=== PATIENT | female | born 1965 | race American Indian/Alaskan Native ===

== ENCOUNTER 2016-08-12 11:42 | Emergency (ER) | payer MEDICARE ==
[2016-08-12] MEDS ORDERED: HALDOL ONE (12:14)
[2016-08-12] MEDS ORDERED: ATIVAN ONE (12:15)
--- NOTE | 2016-08-12 12:30 | Emergency Department Report ---
ED Psych HPI - General Chief Complaint: Psych Stated Complaint: COMBATIVE/SCHIZO/1013 Time Seen by Provider: 08/12/16 12:11 Source: police, EMS Mode of arrival: Ambulatory - History of Present Illness MD Complaint: altered mental status -: Sudden Associated Psychiatric Symptoms: depression, racing thoughts, auditory hallucinations, delusions History of same: Yes Quality: constant Improves With: none Worsens With: none Context: not taking psychiatric Associated Symptoms: confusion, insomnia. denies: headache, shortness of breath , nausea, vomiting, syncope Treatments Prior to Arrival: none - Related Data Home Medications Medication Instructions Recorded Confirmed Last Taken Benztropine [Cogentin] 3 mg PO QDAY 10/26/14 11/06/14 11/06/14 Haloperidol [Haldol] 5 mg PO BID 10/26/14 11/06/14 11/06/14 Allergies Allergy/AdvReac Type Severity Reaction Status Date / Time No Known Allergies Allergy Verified 11/06/14 19:11 ED Review of Systems ROS: Stated complaint: COMBATIVE/SCHIZO/1013 Other details as noted in HPI Comment: All other systems reviewed and negative ED Past Medical Hx - Past Medical History Previous Medical History?: Yes Hx Psychiatric Treatment: Yes (schizo) Additional medical history: schizophrenia - Surgical History Additional Surgical History: SOPHIE - Social History Smoking Status: Unknown if ever smoked - Medications Home Medications: Home Medications Medication Instructions Recorded Confirmed Last Taken Type Benztropine [Cogentin] 3 mg PO QDAY 10/26/14 11/06/14 11/06/14 History Haloperidol [Haldol] 5 mg PO BID 10/26/14 11/06/14 11/06/14 History ED Physical Exam - General Limitations: Altered Mental Status General appearance: alert - Head Head exam: Present: atraumatic, normocephalic - Eye Eye exam: Present: normal appearance, PERRL - ENT ENT exam: Present: normal exam, normal orophraynx, mucous membranes moist - Neck Neck exam: Present: normal inspection - Respiratory Respiratory exam: Present: normal lung sounds bilaterally. Absent: respiratory distress - Cardiovascular Cardiovascular Exam: Present: regular rate, normal rhythm. Absent: systolic murmur, diastolic murmur, rubs, gallop - GI/Abdominal GI/Abdominal exam: Present: soft, normal bowel sounds - Extremities Exam Extremities exam: Present: normal inspection - Back Exam Back exam: Present: normal inspection - Neurological Exam Neurological exam: Present: alert, oriented X3 - Psychiatric Psychiatric exam: Present: depressed, agitated, anxious, manic - Skin Skin exam: Present: warm, dry, intact, normal color. Absent: rash ED Medical Decision Making - Medical Decision Making patient will need to be 1013 for further treatment at psych facility, still waiting on labs to rule out ant organic conditions, she is still hearing voices , will continue to observe, haldol/ativan given here Critical care attestation.: If time is entered above; I have spent that time in minutes in the direct care of this critically ill patient, excluding procedure time. ED Disposition Clinical Impression: Psychosis Disposition: DC/TX-65 PSY HOSP/PSY UNIT Is pt being admited?: No Does the pt Need Aspirin: No Condition: Good Referrals: YUSUF MARCOS MD [Primary Care Provider] - 3-5 Days Time of Disposition: 12:51
[2016-08-12 13:25] LABS: Basophils % (Auto) 0.4 % (0.0-1.8); Hematocrit 36.7 % (30.3-42.9); Hemoglobin 12.3 gm/dl (10.1-14.3); Mean Corpuscular HGB Conc 34 % (30-34); Mean Corpuscular Hemoglobin 32 pg (28-32); Mean Corpuscular Volume 95 fl (79-97); Platelet Count 151 K/mm3 (140-440); Red Blood Count 3.87 M/mm3 (3.65-5.03); Red Cell Distribution Width 13.9 % (13.2-15.2); White Blood Count 3.7 K/mm3 (4.5-11.0)
[2016-08-12 13:40] LABS: Anion Gap 15 mmol/L; Blood Urea Nitrogen 8 mg/dL (7-17); Calcium 8.8 mg/dL (8.4-10.2); Carbon Dioxide 26 mmol/L (22-30); Chloride 102.7 mmol/L (98-107); Glucose 88 mg/dL (65-100); Potassium 4.2 mmol/L (3.6-5.0); Sodium 139 mmol/L (137-145)
[2016-08-12 23:03] LABS: Urine Drugs of Abuse Note Disclamer
[2016-08-12 23:21] LABS: Bilirubin,Urine NEG (Negative); Blood,Urine NEG (Negative); Ketones,Urine NEG (Negative); Leukocyte Esterase,Urine NEG (Negative); Nitrite,Urine NEG (Negative); Protein,Urine <15 mg/dL mg/dL (Negative); Urobilinogen,Urine < 2.0 mg/dL (<2.0); WBC,Urine < 1.0 /HPF (0.0-6.0)
--- NOTE | 2016-08-13 18:09 | Consultation ---
History of Present Illness - Reason for Consult Consult date: 08/13/16 Reason for consult: Mental Health Evaluation Requesting physician: JESSE CORTES - Chief Complaint Chief complaint: "Food inside me" - History of Present Psychiatric Illness 51 y.o. black female presenting to [facility] for for bizarre behavior. Today patient is calm, but delusional during the assessment. She stated that I was a ghost and someone is cooking hamburger inside of her. She could not tell me who this someone is, also she could not elaborate about me being a ghost. Patient pauses when answering questions possibly responding to some type of stimuli. She was pacing during our conversation and had to be redirected. No gestures of SI/HI' s. Patient is a poor historian. Medications and Allergies Allergies Allergy/AdvReac Type Severity Reaction Status Date / Time No Known Allergies Allergy Verified 11/06/14 19:11 Home Medications Medication Instructions Recorded Confirmed Last Taken Type Benztropine [Cogentin] 3 mg PO QDAY 10/26/14 11/06/14 11/06/14 History Haloperidol [Haldol] 5 mg PO BID 10/26/14 11/06/14 11/06/14 History Past psychiatric history - Past Medical History Past Medical History: other (unable to obtain) Past Surgical History: Other (unable to obtain) - past Psychiatric treatment and history psychiatric treatment history: unable to obtain psy hx and fam psy hx - Social History Social history: other (unable to obtain) Mental Status Exam - Vital signs Last Vital Signs Temp 98.4 F 08/13/16 10:00 Pulse 72 08/13/16 10:00 Resp 18 08/13/16 13:37 BP 116/70 08/13/16 10:00 Pulse Ox 97 08/13/16 13:37 - Exam Narrative exam: ROS: (+) psychosis MSE: Appearance: calm, cooperative, disheveled Behavior: good eye contact Speech: regular rate and tone Mood: "pretty good" Affect: labile Thought Process: tangential Thought Content: denies SI/HI's and AVH's, delusional Motor Activity: ambulatory Cognition: A/Ox 3 Insight: poor Judgment: poor Results Result Diagrams: 08/12/16 13:10 08/12/16 13:10 Abnormal lab results 08/12/16 Range/Units Unknown Urine pH 8.0 H (5.0-7.0) All other labs normal. Assessment and Plan Assessment and plan: Impression: Unspecified Psychotic DO, Historical Dx from her chart: Schizophrenia. Today patient is calm, but delusional during the assessment. No gestures of SI/HI's. DDx: Delusional DO, Schizoaffective DO Recommendation/Plan: Continue 1013 with placement to inpatient psy services. Pending transfer to [place].
[2016-08-13 21:01] VITALS: BP 147/88
== END 2016-08-13 20:40 ==
LOC: ED 11:42
DX: F29 Unspecified psychosis not due to a substance or known physiological condition (principal); F20.9 Schizophrenia, unspecified
CPT/HCPCS: 36415; 80048; 80307; 81001; 84703; 85025; 99285; G0480; J1630; J2060; 80320

== ENCOUNTER 2018-09-14 13:21 | Emergency (ER) | payer MEDICARE ==
[2018-09-14] MEDS ORDERED: BENADRYL IM ONE (14:02)
[2018-09-14] MEDS ORDERED: GEODON IM ONE (14:02)
[2018-09-14] MEDS ORDERED: WATER FOR INJ Sterile (PF) 10 ML ONE (14:19)
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
[2018-09-14 15:15] LABS: Hematocrit 36.9 % (30.3-42.9); Hemoglobin 12.3 gm/dl (10.1-14.3); Mean Corpuscular HGB Conc 33 % (30-34); Mean Corpuscular Volume 93 fl (79-97); Platelet Count 140 K/mm3 (140-440); Red Blood Count 3.96 M/mm3 (3.65-5.03); Red Cell Distribution Width 13.7 % (13.2-15.2)
[2018-09-14 15:30] LABS: Bacteria,Urine 1+ /HPF (Negative); Bilirubin,Urine NEG (Negative); Blood,Urine NEG (Negative); Color,Urine Yellow (Yellow); Protein,Urine <15 mg/dL mg/dL (Negative)
[2018-09-14 15:43] LABS: Amphetamine Screen,Urine PRESUMPTIVE NEGATIVE; Benzodiazepines Screen,Urine PRESUMPTIVE NEGATIVE; Cannabinoid Screen,Urine PRESUMPTIVE NEGATIVE; Cocaine Screen,Urine PRESUMPTIVE NEGATIVE; Methadone Screen,Urine PRESUMPTIVE NEGATIVE; Opiate Screen,Urine PRESUMPTIVE NEGATIVE
[2018-09-14 15:49] LABS: BUN/Creatinine Ratio 17; Blood Urea Nitrogen 19 mg/dL (7-17); Calcium 9.3 mg/dL (8.4-10.2); Hemolysis Index 29
[2018-09-14 15:58] LABS: RBC Morphology Normal; Total Cells Counted 100
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
[2018-09-15 07:14] VITALS: BP 136/69
--- NOTE | 2018-09-15 14:42 | Consultation ---
History of Present Illness - Reason for Consult Consult date: 09/15/18 Reason for consult: Mental Health Evaluation Requesting physician: MATTHEW SINGH - Chief Complaint Chief complaint: "Why do I need to be here" - History of Present Psychiatric Illness 53 y.o. AA female who presented to the ER for violent and aggressive behavior. Today the patient was disorganized during the assessment. Most of her answers to questions were not logical. She had to be redirected several times to keep her on topic. She appeared to be preoccupied. She kept her eyes closed throughout the interview. Overall, the patient is a poor historian. No gestires of SI/HI's. Medications and Allergies Allergies Allergy/AdvReac Type Severity Reaction Status Date / Time No Known Allergies Allergy Verified 10/05/17 16:25 Home Medications Medication Instructions Recorded Confirmed Last Taken Type Benztropine [Cogentin] 3 mg PO QDAY 10/26/14 10/06/17 11/06/14 History Haloperidol [Haldol] 5 mg PO BID 10/26/14 10/06/17 11/06/14 History Past psychiatric history - Past Medical History Past Medical History: other ([place]ake to obtain ) Past Surgical History: Other (Unable to obtain ) - past Psychiatric treatment and history psychiatric treatment history: Unable to obtain a psy hx and fa, psy hx. - Social History Social history: other (Unable to obtain ) Mental Status Exam - Vital signs Last Vital Signs Temp 98.0 F 09/15/18 01:00 Pulse 77 09/15/18 01:00 Resp 18 09/15/18 01:00 BP 136/69 09/15/18 01:00 Pulse Ox 99 09/15/18 01:00 - Exam Narrative exam: MSE: Appearance: calm Behavior: eyes were closed Speech: regular rate and tone Mood: preoccupied Affect: congruent to mood Thought Process: disorganized Thought Content: no gestures of SI/HI's Motor Activity: ambulatory Cognition: A/O x 3 Insight: poor Judgment: poor Results Result Diagrams: 09/14/18 14:44 09/14/18 14:44 Abnormal lab results 09/14/18 09/14/18 09/14/18 Range/Units 14:44 14:44 14:44 WBC 3.2 L (4.5-11.0) K/mm3 Seg Neuts % (Manual) 35.0 L (40.0-70.0) % Lymphocytes % (Manual) 50.0 H (13.4-35.0) % Monocytes % (Manual) 13.0 H (0.0-7.3) % Seg Neutrophils # Man 1.1 L (1.8-7.7) K/mm3 BUN 19 H (7-17) mg/dL Glucose 119 H (65-100) mg/dL Salicylates < 0.3 L (2.8-20.0) mg/dL Acetaminophen (10.0-30.0) ug/mL 09/14/18 Range/Units 14:44 WBC (4.5-11.0) K/mm3 Seg Neuts % (Manual) (40.0-70.0) % Lymphocytes % (Manual) (13.4-35.0) % Monocytes % (Manual) (0.0-7.3) % Seg Neutrophils # Man (1.8-7.7) K/mm3 BUN (7-17) mg/dL Glucose (65-100) mg/dL Salicylates (2.8-20.0) mg/dL Acetaminophen < 5.0 L (10.0-30.0) ug/mL All other labs normal. Assessment and Plan Assessment and plan: Impression: Unspecified Psychosis. Today patient was calm, but disorganized during the assessment. DDx: Schizophrenia Recommendation/Plan: Continue 1013. Dispo: The patient was accepted on the [facility] on the 5th floor. referred to inpatient psy services. Will staff with Dr Rufino Grey.
== END 2018-09-15 11:01 ==
LOC: ED 13:21
DX: F23 Brief psychotic disorder (principal)
CPT/HCPCS: 36415; 80048; 80307; 81001; 85007; 85025; 96372; 99284; J1200; J3486; 80320; G0480

== ENCOUNTER 2018-09-15 10:10 | Inpatient (IN) | payer MEDICARE ==
[2018-09-15] MEDS ORDERED: HALDOL IM PRN (19:33)
[2018-09-15] MEDS ORDERED: ATIVAN IM PRN (19:33)
[2018-09-15] MEDS: HALDOL PO SCH (21:33)
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
[2018-09-16] MEDS: HALDOL PO SCH ×2 (09:39→21:12)
[2018-09-16] MEDS: COGENTIN PO SCH ×2 (09:39→13:32)
--- NOTE | 2018-09-16 11:02 | History and Physical Report ---
History of Present Illness Date of examination: 09/16/18 Date of admission: 09/15/18 11:05 Past History Past Medical History: other (Unknown. Patient gave no response) Social history: other (Patient lives in a [facility]. She is but . ) Medications and Allergies Allergies Allergy/AdvReac Type Severity Reaction Status Date / Time No Known Allergies Allergy Verified 10/05/17 16:25 Home Medications Medication Instructions Recorded Confirmed Last Taken Type Benztropine [Cogentin] 3 mg PO QDAY 10/26/14 10/06/17 11/06/14 History Haloperidol [Haldol] 5 mg PO BID 10/26/14 10/06/17 11/06/14 History Active Meds: Active Medications Benztropine Mesylate (Cogentin) 3 mg PO QDAY [facility] Last Admin: 09/16/18 09:39 Dose: 3 mg Documented by: Haloperidol (Haldol) 5 mg PO BID [facility] Last Admin: 09/16/18 09:39 Dose: 5 mg Documented by: Haloperidol Lactate (Haldol) 5 mg IM Q6H PRN PRN Reason: Agitation Lorazepam (Ativan) 2 mg IM Q6H PRN PRN Reason: Agitation Exam - Constitutional Vitals: Temp Pulse Resp BP Pulse Ox 97.6 F 70 18 113/80 100 09/15/18 22:00 09/15/18 22:10 09/15/18 22:00 09/15/18 22:00 09/15/18 22:00
--- NOTE | 2018-09-16 11:02 | Progress Note ---
Hospitalist Physical - Constitutional Vitals: Temp Pulse Resp BP Pulse Ox 97.6 F 70 18 113/80 100 09/15/18 22:00 09/15/18 22:10 09/15/18 22:00 09/15/18 22:00 09/15/18 22:00 General appearance: Present: no acute distress, well-nourished, disheveled Active Medications - Current Medications Current Medications: Generic Name Dose Route Start Last Admin Trade Name Freq PRN Reason Stop Dose Admin Benztropine Mesylate 3 mg 09/16/18 10:00 09/16/18 09:39 Cogentin PO 3 mg QDAY OMAR Administration Haloperidol 5 mg 09/15/18 22:00 09/16/18 09:39 Haldol PO 5 mg BID OMAR Administration Haloperidol Lactate 5 mg 09/15/18 19:33 Haldol IM Q6H PRN Agitation Lorazepam 2 mg 09/15/18 19:33 Ativan IM Q6H PRN Agitation
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
[2018-09-16 20:42] LABS: Bacteria,Urine 1+ /HPF (Negative); Bilirubin,Urine NEG (Negative); Blood,Urine NEG (Negative); Color,Urine Yellow (Yellow); Mucus,Urine FEW /HPF; Protein,Urine <15 mg/dL mg/dL (Negative)
[2018-09-17] MEDS: COGENTIN PO SCH (10:11)
[2018-09-17] MEDS: HALDOL PO SCH ×2 (10:12→21:31)
--- NOTE | 2018-09-17 19:29 | Progress Note ---
Subjective Date of service: 09/17/18 Principal diagnosis: Paranoid schizophrenia Subjective Comment: The patient is labile, agitated and uncooperative. She is hyperactive and talkative. She appears to be responding to internal stimuli. Refuses to engage in interview. Objective - Criteria for Continued Treatment Criteria for Continued Treatment: Improving Level of Functioning, Reducing Isolative Behaviors, Stablizing Level of Functioning, Improving Emotional/Socia - Mental Status Mental Status: Alert - Objective Observation Participation Level: Minimal Assessment and Plan - Patient Problems (1) Paranoid schizophrenia Current Visit: Yes Status: Acute Plan to address problem: Patient will be admitted for inpatient psychiatric evaluation, medication adjustment and close monitoring The patient's behavior, mood, sleep and appetite will be closely monitored. Patient will be enrolled in individual and group therapeutic sessions and encouraged to attend. Patient will be provided with a safe and structured environment. Patient's physical health needs will be addressed by the Hospitalist. Social Assessment will be completed and the Seat Maker will work with patient and family to ensure a suitable and safe disposition Medication adjustment will be made as clinically indicated. Continue Haldol 5mg bid Medications & Allergies - Medications Allergies/Adverse Reactions: Allergies No Known Allergies Allergy (Verified 10/05/17 16:25) Home Medications: Home Medications Medication Instructions Recorded Confirmed Last Taken Type Benztropine [Cogentin] 3 mg PO QDAY 10/26/14 10/06/17 11/06/14 History Haloperidol [Haldol] 5 mg PO BID 10/26/14 10/06/17 11/06/14 History Active Medications: Generic Name Dose Route Start Last Admin Trade Name Freq PRN Reason Stop Dose Admin Benztropine Mesylate 3 mg 09/16/18 10:00 09/17/18 10:11 Cogentin PO 3 mg QDAY OMAR Administration Haloperidol 5 mg 09/16/18 22:00 09/17/18 10:12 Haldol PO 5 mg BID OMAR Administration Haloperidol Lactate 5 mg 09/15/18 19:33 Haldol IM Q6H PRN Agitation Lorazepam 2 mg 09/15/18 19:33 Ativan IM Q6H PRN Agitation
--- NOTE | 2018-09-18 08:58 | Progress Note ---
Subjective Date of service: 09/18/18 Principal diagnosis: Paranoid schizophrenia Subjective Comment: The patient is unkempt and dishevelled; singing and taking to self loudly, dancing in her room; gets irritable and agitated during interview, dismissive and uncooperative in my attempt to assess her this morning. She is hyperactive and talkative. She appears to be responding to internal stimuli. Refuses to engage in interview. She continues to be psychotic, disorganized and unable to care for self. She denies SI/HI. She is compliant with meds and denies side effects. Objective - Criteria for Continued Treatment Criteria for Continued Treatment: Improving Level of Functioning, Reducing Isolative Behaviors, Stablizing Level of Functioning, Improving Emotional/Socia, Decreasing Frequency of Hospitalization - Mental Status Mental Status: Alert - Objective Observation Participation Level: Minimal Assessment and Plan - Patient Problems (1) Paranoid schizophrenia Current Visit: Yes Status: Acute Plan to address problem: Patient will be admitted for inpatient psychiatric evaluation, medication adjustment and close monitoring The patient's behavior, mood, sleep and appetite will be closely monitored. Patient will be enrolled in individual and group therapeutic sessions and encouraged to attend. Patient will be provided with a safe and structured environment. Patient's physical health needs will be addressed by the Hospitalist. Social Assessment will be completed and the Heading And Priming Operator will work with patient and family to ensure a suitable and safe disposition Medication adjustment will be made as clinically indicated. Continue Cogentin 3mg daily Increase Haldol to 5mg qam and 10mg qhs Medications & Allergies - Medications Allergies/Adverse Reactions: Allergies No Known Allergies Allergy (Verified 10/05/17 16:25) Home Medications: Home Medications Medication Instructions Recorded Confirmed Last Taken Type Benztropine [Cogentin] 3 mg PO QDAY 10/26/14 10/06/17 11/06/14 History Haloperidol [Haldol] 5 mg PO BID 10/26/14 10/06/17 11/06/14 History Active Medications: Generic Name Dose Route Start Last Admin Trade Name Freq PRN Reason Stop Dose Admin Benztropine Mesylate 3 mg 09/16/18 10:00 09/17/18 10:11 Cogentin PO 3 mg QDAY OMAR Administration Haloperidol 5 mg 09/16/18 22:00 09/17/18 21:31 Haldol PO 5 mg BID OMAR Administration Haloperidol Lactate 5 mg 09/15/18 19:33 Haldol IM Q6H PRN Agitation Lorazepam 2 mg 09/15/18 19:33 Ativan IM Q6H PRN Agitation
[2018-09-18] MEDS: COGENTIN PO SCH (09:12)
[2018-09-18] MEDS: HALDOL PO SCH ×2 (09:12→21:17)
--- NOTE | 2018-09-19 08:06 | Progress Note ---
Subjective Date of service: 09/19/18 Principal diagnosis: Paranoid schizophrenia Subjective Comment: Per Nursing report, patient laughs, sings and talks to herself. pt is labile and irritable. pt has cursed at several staff members this shift, calling them a "bitch" and saying "get the fuck away from me". pt sits alone for meals and does not interact w/ other patients. The patient is unkempt and dishevelled; singing and taking to self loudly, dancing in her room; gets irritable and agitated during interview, dismissive and uncooperative in my attempt to assess her this morning. She is hyperactive and talkative. She appears to be responding to internal stimuli. Refuses to engage in interview. She continues to be psychotic, disorganized and unable to care for self. She denies SI/HI. She is compliant with meds and denies side effects. Objective - Criteria for Continued Treatment Criteria for Continued Treatment: Improving Level of Functioning, Reducing Isolative Behaviors, Improving Treatment / Medication Compliance, Stablizing Level of Functioning, Improving Emotional/Socia - Mental Status Mental Status: Alert - Objective Observation Participation Level: Minimal Assessment and Plan - Patient Problems (1) Paranoid schizophrenia Current Visit: Yes Status: Acute Plan to address problem: Patient will be admitted for inpatient psychiatric evaluation, medication adjustment and close monitoring The patient's behavior, mood, sleep and appetite will be closely monitored. Patient will be enrolled in individual and group therapeutic sessions and encouraged to attend. Patient will be provided with a safe and structured environment. Patient's physical health needs will be addressed by the Hospitalist. Social Assessment will be completed and the Senior Supplier Quality Engineer will work with patient and family to ensure a suitable and safe disposition Medication adjustment will be made as clinically indicated. Continue Cogentin 3mg daily Continue Haldol 5mg qam and 10mg qhs (09/18) Medications & Allergies - Medications Allergies/Adverse Reactions: Allergies No Known Allergies Allergy (Verified 10/05/17 16:25) Home Medications: Home Medications Medication Instructions Recorded Confirmed Last Taken Type Benztropine [Cogentin] 3 mg PO QDAY 10/26/14 10/06/17 11/06/14 History Haloperidol [Haldol] 5 mg PO BID 10/26/14 10/06/17 11/06/14 History Active Medications: Generic Name Dose Route Start Last Admin Trade Name Freq PRN Reason Stop Dose Admin Benztropine Mesylate 3 mg 09/16/18 10:00 09/18/18 09:12 Cogentin PO 3 mg QDAY OMAR Administration Haloperidol 5 mg 09/18/18 10:00 09/18/18 09:12 Haldol PO 5 mg QDAY OMAR Administration Haloperidol 10 mg 09/18/18 22:00 09/18/18 21:17 Haldol PO 10 mg QHS OMAR Administration Haloperidol Lactate 5 mg 09/15/18 19:33 Haldol IM Q6H PRN Agitation Lorazepam 2 mg 09/15/18 19:33 Ativan IM Q6H PRN Agitation
[2018-09-19] MEDS: HALDOL PO SCH ×2 (10:17→21:51)
[2018-09-19] MEDS: COGENTIN PO SCH (10:18)
[2018-09-20] MEDS: HALDOL PO SCH ×2 (09:51→21:25)
[2018-09-20] MEDS: COGENTIN PO SCH (09:55)
--- NOTE | 2018-09-21 08:56 | Progress Note ---
Subjective Date of service: 09/20/18 Principal diagnosis: Paranoid schizophrenia Subjective Comment: The patient is disorganized, unkempt and dishevelled; isolative, gets irritable and agitated when talked to, responding to internal stimuli. Refuses to engage in interview. She denies SI/HI. She is compliant with meds and denies side effects. Objective - Criteria for Continued Treatment Criteria for Continued Treatment: Improving Level of Functioning, Stablizing Level of Functioning, Improving Emotional/Socia - Mental Status Mental Status: Alert - Objective Observation Participation Level: Minimal Assessment and Plan - Patient Problems (1) Paranoid schizophrenia Current Visit: Yes Status: Acute Plan to address problem: Patient will be admitted for inpatient psychiatric evaluation, medication adjustment and close monitoring The patient's behavior, mood, sleep and appetite will be closely monitored. Patient will be enrolled in individual and group therapeutic sessions and encouraged to attend. Patient will be provided with a safe and structured environment. Patient's physical health needs will be addressed by the Hospitalist. Social Assessment will be completed and the Marketing Operations Analyst will work with patient and family to ensure a suitable and safe disposition Medication adjustment will be made as clinically indicated. Continue Cogentin 3mg daily Continue Haldol 5mg qam and 10mg qhs (09/18)
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
[2018-09-21] MEDS: HALDOL PO SCH ×2 (09:27→21:16)
[2018-09-21] MEDS: COGENTIN PO SCH (09:27)
[2018-09-22] MEDS: COGENTIN PO SCH (09:38)
[2018-09-22] MEDS: HALDOL PO SCH ×2 (09:38→21:26)
--- NOTE | 2018-09-22 11:33 | Progress Note ---
Subjective Date of service: 09/22/18 Principal diagnosis: Paranoid schizophrenia Subjective Comment: The patient is unable to care for self, she is very disorganized, unkempt and dishevelled; isolative, gets irritable and agitated when talked to, responding to internal stimuli. Unable to confirm if she is experiencing hallucinations but it appears that is the case and she is distressed by the hallucinations. She refuses to engage in interview. She denies SI/HI. She is compliant with meds wit h no reported or observed side effects Objective - Criteria for Continued Treatment Criteria for Continued Treatment: Preventing Decomposition, Improving Level of Functioning, Improving Treatment / Medication Compliance, Stablizing Level of Functioning, Improving Emotional/Socia - Objective Observation Participation Level: Minimal Assessment and Plan - Patient Problems (1) Paranoid schizophrenia Current Visit: Yes Status: Acute Plan to address problem: Patient will be admitted for inpatient psychiatric evaluation, medication adjustment and close monitoring The patient's behavior, mood, sleep and appetite will be closely monitored. Patient will be enrolled in individual and group therapeutic sessions and encouraged to attend. Patient will be provided with a safe and structured environment. Patient's physical health needs will be addressed by the Hospitalist. Social Assessment will be completed and the Breaking Machine Operator will work with patient and family to ensure a suitable and safe disposition Medication adjustment will be made as clinically indicated. Continue Cogentin 3mg daily Continue Haldol 10mg BID (09/21) Medications & Allergies - Medications Allergies/Adverse Reactions: Allergies No Known Allergies Allergy (Verified 10/05/17 16:25) Home Medications: Home Medications Medication Instructions Recorded Confirmed Last Taken Type Benztropine [Cogentin] 1 mg PO BID 09/20/18 09/20/18 Unknown History Depakote ER 1,500 mg PO HS 09/20/18 09/20/18 Unknown History Haloperidol [Haldol] 10 mg PO HS 09/20/18 09/20/18 Unknown History Paliperidone Palmitate [Invega 156 mg IM QMONTH 09/20/18 09/20/18 Unknown History Sustenna] Triamterene/Hydrochlorothiazid 37.5 mg PO DAILY 09/20/18 09/20/18 Unknown History [Triamterene-Hctz 37.5-25 mg Cp] diphenhydrAMINE [Benadryl CAP] 25 mg PO QHS PRN 09/20/18 09/20/18 Unknown History Active Medications: Generic Name Dose Route Start Last Admin Trade Name Freq PRN Reason Stop Dose Admin Benztropine Mesylate 3 mg 09/16/18 10:00 09/22/18 09:38 Cogentin PO 3 mg QDAY OMAR Administration Haloperidol 10 mg 09/21/18 10:00 09/22/18 09:38 Haldol PO 10 mg BID OMAR Administration Haloperidol Lactate 5 mg 09/15/18 19:33 09/20/18 11:55 Haldol IM 5 mg Q6H PRN Administration Agitation Lorazepam 2 mg 09/15/18 19:33 09/20/18 11:39 Ativan IM 2 mg Q6H PRN Administration Agitation Mental Status Exam - Vital signs Last Vital Signs Temp 97.9 F 09/21/18 19:26 Pulse 71 09/20/18 22:00 Resp 16 09/21/18 19:26 BP 110/68 09/21/18 19:26 Pulse Ox 96 09/20/18 22:00 - Exam Orientation: place, person Affect: flat Mood: congruent with affect Thought content: other (Unable to assess as patient refuses to engage in interview) Thought Process: Thought Blocking, Disorganized Perceptions: hallucinations Speech: paucity Concentration: distractible Motor activity: agitated Level of consciousness: alert Memory: Intact Sleep Symptoms: None Interaction: irritable, uncooperative
[2018-09-23] MEDS: HALDOL PO SCH ×2 (09:37→21:04)
[2018-09-23] MEDS: COGENTIN PO SCH (11:35)
[2018-09-24] MEDS: HALDOL PO SCH ×2 (09:55→21:03)
[2018-09-24] MEDS: COGENTIN PO SCH (09:55)
--- NOTE | 2018-09-25 05:48 | Progress Note ---
Subjective Date of service: 09/23/18 Principal diagnosis: Paranoid schizophrenia Subjective Comment: The patient continues to be very disorganized, unkempt and dishevelled; she is experiencing distressing hallucinations, isolates and talks to self. She refuses to engage in interview. She denies SI/HI. She is compliant with meds with no reported or observed side effects Objective - Criteria for Continued Treatment Criteria for Continued Treatment: Improving Level of Functioning, Reducing Isolative Behaviors, Stablizing Level of Functioning, Improving Emotional/Socia - Objective Observation Participation Level: Minimal Assessment and Plan - Patient Problems (1) Paranoid schizophrenia Current Visit: Yes Status: Acute Plan to address problem: Patient will be admitted for inpatient psychiatric evaluation, medication adjustment and close monitoring The patient's behavior, mood, sleep and appetite will be closely monitored. Patient will be enrolled in individual and group therapeutic sessions and encouraged to attend. Patient will be provided with a safe and structured environment. Patient's physical health needs will be addressed by the Hospitalist. Social Assessment will be completed and the Junior High School Teacher will work with patient and family to ensure a suitable and safe disposition Medication adjustment will be made as clinically indicated. Continue Cogentin 3mg daily Continue Haldol 10mg BID (09/21) Medications & Allergies - Medications Allergies/Adverse Reactions: Allergies No Known Allergies Allergy (Verified 10/05/17 16:25) Home Medications: Home Medications Medication Instructions Recorded Confirmed Last Taken Type Benztropine [Cogentin] 1 mg PO BID 09/20/18 09/20/18 Unknown History Depakote ER 1,500 mg PO HS 09/20/18 09/20/18 Unknown History Haloperidol [Haldol] 10 mg PO HS 09/20/18 09/20/18 Unknown History Paliperidone Palmitate [Invega 156 mg IM QMONTH 09/20/18 09/20/18 Unknown History Sustenna] Triamterene/Hydrochlorothiazid 37.5 mg PO DAILY 09/20/18 09/20/18 Unknown History [Triamterene-Hctz 37.5-25 mg Cp] diphenhydrAMINE [Benadryl CAP] 25 mg PO QHS PRN 09/20/18 09/20/18 Unknown History Active Medications: Generic Name Dose Route Start Last Admin Trade Name Freq PRN Reason Stop Dose Admin Benztropine Mesylate 3 mg 09/16/18 10:00 09/24/18 09:55 Cogentin PO 3 mg QDAY OMAR Administration Haloperidol 10 mg 09/21/18 10:00 09/24/18 21:03 Haldol PO 10 mg BID OMAR Administration Haloperidol Lactate 5 mg 09/15/18 19:33 09/20/18 11:55 Haldol IM 5 mg Q6H PRN Administration Agitation Lorazepam 2 mg 09/15/18 19:33 09/20/18 11:39 Ativan IM 2 mg Q6H PRN Administration Agitation Mental Status Exam - Vital signs Last Vital Signs Temp 97.9 F 09/24/18 09:34 Pulse 70 09/24/18 10:00 Resp 16 09/24/18 09:34 BP 115/79 09/24/18 10:00 Pulse Ox 99 09/23/18 22:00 - Exam Orientation: time, place, person Affect: flat Mood: congruent with affect Thought content: delusions Thought Process: Thought Blocking Perceptions: auditory, hallucinations Speech: paucity Concentration: focused Motor activity: normal Level of consciousness: alert Memory: Intact Interaction: guarded, uncooperative
[2018-09-25] MEDS: HALDOL PO SCH ×2 (10:16→21:08)
[2018-09-25] MEDS: COGENTIN PO SCH (10:17)
--- NOTE | 2018-09-25 11:39 | Progress Note ---
Subjective Date of service: 09/23/18 Principal diagnosis: Paranoid schizophrenia Subjective Comment: The patient continues to be very disorganized, unkempt and dishevelled; she is experiencing distressing hallucinations, isolates and talks to self. She refuses to engage in interview. She denies SI/HI. She is compliant with meds with no reported or observed side effects Objective - Criteria for Continued Treatment Criteria for Continued Treatment: Improving Level of Functioning, Stablizing Level of Functioning, Improving Emotional/Socia - Objective Observation Participation Level: Minimal Assessment and Plan - Patient Problems (1) Paranoid schizophrenia Current Visit: Yes Status: Acute Plan to address problem: Patient will be admitted for inpatient psychiatric evaluation, medication adjustment and close monitoring The patient's behavior, mood, sleep and appetite will be closely monitored. Patient will be enrolled in individual and group therapeutic sessions and encouraged to attend. Patient will be provided with a safe and structured environment. Patient's physical health needs will be addressed by the Hospitalist. Social Assessment will be completed and the Thermal Molder will work with patient and family to ensure a suitable and safe disposition Medication adjustment will be made as clinically indicated. Continue Cogentin 3mg daily Continue Haldol 10mg BID (09/21)
--- NOTE | 2018-09-25 11:44 | Progress Note ---
Subjective Date of service: 09/25/18 Principal diagnosis: Paranoid schizophrenia Subjective Comment: The patient continues to be psychotic, agitated, hostile, paranoid, disorganized, unkempt and dishevelled; she is talking to herself this morning, hostile and agitated with staff, still experiencing distressing hallucinations, isolates and refuses to engage in long interview. She tells me that Abilify is "good" for her. She denies SI/HI. She is compliant with meds with no reported or observed side effects Objective - Criteria for Continued Treatment Criteria for Continued Treatment: Improving Level of Functioning, Stablizing Level of Functioning, Improving Emotional/Socia - Objective Observation Participation Level: Minimal Assessment and Plan - Patient Problems (1) Paranoid schizophrenia Current Visit: Yes Status: Acute Plan to address problem: Patient will be admitted for inpatient psychiatric evaluation, medication adjustment and close monitoring The patient's behavior, mood, sleep and appetite will be closely monitored. Patient will be enrolled in individual and group therapeutic sessions and encouraged to attend. Patient will be provided with a safe and structured environment. Patient's physical health needs will be addressed by the Hospitalist. Social Assessment will be completed and the [employer] [employer] Setter will work with patient and family to ensure a suitable and safe disposition Medication adjustment will be made as clinically indicated. Continue Cogentin 3mg daily Continue Haldol 10mg BID (09/21) Will add Abilify 2mg daily for psychosis Medications & Allergies - Medications Allergies/Adverse Reactions: Allergies No Known Allergies Allergy (Verified 10/05/17 16:25) Home Medications: Home Medications Medication Instructions Recorded Confirmed Last Taken Type Benztropine [Cogentin] 1 mg PO BID 09/20/18 09/20/18 Unknown History Depakote ER 1,500 mg PO HS 09/20/18 09/20/18 Unknown History Haloperidol [Haldol] 10 mg PO HS 09/20/18 09/20/18 Unknown History Paliperidone Palmitate [Invega 156 mg IM QMONTH 09/20/18 09/20/18 Unknown History Sustenna] Triamterene/Hydrochlorothiazid 37.5 mg PO DAILY 09/20/18 09/20/18 Unknown History [Triamterene-Hctz 37.5-25 mg Cp] diphenhydrAMINE [Benadryl CAP] 25 mg PO QHS PRN 09/20/18 09/20/18 Unknown History Active Medications: Generic Name Dose Route Start Last Admin Trade Name Freq PRN Reason Stop Dose Admin Benztropine Mesylate 3 mg 09/16/18 10:00 09/25/18 10:17 Cogentin PO 3 mg QDAY OMAR Administration Haloperidol 10 mg 09/21/18 10:00 09/25/18 10:16 Haldol PO 10 mg BID OMAR Administration Haloperidol Lactate 5 mg 09/15/18 19:33 09/20/18 11:55 Haldol IM 5 mg Q6H PRN Administration Agitation Lorazepam 2 mg 09/15/18 19:33 09/20/18 11:39 Ativan IM 2 mg Q6H PRN Administration Agitation Mental Status Exam - Vital signs Last Vital Signs Temp 97.9 F 09/24/18 09:34 Pulse 70 09/24/18 10:00 Resp 16 09/24/18 09:34 BP 115/79 09/24/18 10:00 Pulse Ox 99 09/23/18 22:00 - Exam Orientation: time, place, person Affect: flat, agitated Mood: congruent with affect Thought content: delusions, paranoia Thought Process: Disorganized Perceptions: auditory, hallucinations Speech: paucity Concentration: distractible Motor activity: agitated Level of consciousness: alert Memory: Intact Interaction: hostile, irritable, guarded, uncooperative
[2018-09-25] MEDS: ABILIFY PO SCH (14:10)
--- NOTE | 2018-09-26 07:35 | Progress Note ---
Subjective Date of service: 09/26/18 Principal diagnosis: Paranoid schizophrenia Subjective Comment: The patient withdrawn, prefers to sit alone away from others, often conversing loudly with unseen individuals; appears distressed and agitated by the internal stimuli that she is experiencing which cause her to become irritable and agitated towards staffs. She is psychotic, agitated, hostile, paranoid, disorganized, unkempt and dishevelled; She denies SI/HI. She is compliant with meds with no reported or observed side effects MSE: Orientation: time, place, person Affect: flat, agitated Mood: congruent with affect Thought content: delusions, paranoia Thought Process: Disorganized Perceptions: auditory, hallucinations Speech: paucity Concentration: distractible Motor activity: agitated Level of consciousness: alert Memory: Intact Interaction: hostile, irritable, guarded, uncooperative Objective - Criteria for Continued Treatment Criteria for Continued Treatment: Improving Level of Functioning, Stablizing Level of Functioning, Improving Emotional/Socia, Decreasing Frequency of Hospitalization - Objective Observation Participation Level: Minimal Assessment and Plan - Patient Problems (1) Paranoid schizophrenia Current Visit: Yes Status: Acute Plan to address problem: Patient will be admitted for inpatient psychiatric evaluation, medication adjustment and close monitoring The patient's behavior, mood, sleep and appetite will be closely monitored. Patient will be enrolled in individual and group therapeutic sessions and encouraged to attend. Patient will be provided with a safe and structured environment. Patient's physical health needs will be addressed by the Hospitalist. Social Assessment will be completed and the Rebeamer will work with patient and family to ensure a suitable and safe disposition Medication adjustment will be made as clinically indicated. Continue Cogentin 3mg daily Continue Haldol 10mg BID (09/21) Continue Abilify 5mg daily for psychosis (Started 09/25)
[2018-09-26] MEDS: ABILIFY PO SCH (09:21)
[2018-09-26] MEDS: HALDOL PO SCH ×2 (09:23→21:04)
[2018-09-26] MEDS: COGENTIN PO SCH (09:56)
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
[2018-09-27] MEDS: COGENTIN PO SCH (09:09)
[2018-09-27] MEDS: HALDOL PO SCH ×2 (09:10→21:01)
[2018-09-27] MEDS: ABILIFY PO SCH (09:10)
[2018-09-28] MEDS: ABILIFY PO SCH (09:31)
[2018-09-28] MEDS: HALDOL PO SCH (09:31)
[2018-09-28] MEDS: COGENTIN PO SCH (09:31)
[2018-09-28 09:38] VITALS: BP 125/83
[2018-09-28 14:25] LABS: BUN/Creatinine Ratio 19; Blood Urea Nitrogen 17 mg/dL (7-17); Calcium 8.9 mg/dL (8.4-10.2); Hemolysis Index 6
[2018-09-28 17:06] LABS: Chol/HDL Ratio 3.01 %
--- NOTE | 2018-09-28 17:34 | Progress Note ---
Subjective Date of service: 09/28/18 Principal diagnosis: Paranoid schizophrenia Subjective Comment: THIS is the Daily progress note on this patient who is discharging today. patient was admitted for psychosis and aggressive behavior which she acknowledge. she is alert and well oriented.she denies any active hallucination but she still have delusional thoughts of TV is EVIL and she can see the EVIL IN TV. SHE DENIES ANY DESTRUCTIVE THOUGHTS.She denies any suicidal or homicidal thoughts. she denies any side effect on medicine. she feels ready for discharge. MENTAL STATUS: Patient is alert and oriented times three. Her memory is grossly intact.Judgement and insight is fair.she denies hallucination but she is still delusional.she denies any suicidal or homicidal ideation. plan: patient is safe to be discharge back to the community.
== END 2018-09-28 17:15 | disposition home or self-care (01) | DRG 885 ==
LOC: 3A 10:10 → UNDOADMIN 10:10 → 5A 11:05
PROVIDERS: ADMIT Psychiatry & Neurology Psychiatry; ATTEND Psychiatry & Neurology Psychiatry
DX: F20.0 Paranoid schizophrenia (principal); F32.9 Major depressive disorder, single episode, unspecified; I10 Essential (primary) hypertension; E66.01 Morbid (severe) obesity due to excess calories; Z59.0 Homelessness; Z68.39 Body mass index [BMI] 39.0-39.9, adult
CPT/HCPCS: 36415; 80048; 80061; 81001; G0378; J1630; J2060

== ENCOUNTER 2019-11-20 03:15 | Emergency (ER) | payer MEDICARE ==
[2019-11-20 04:06] VITALS: BP 147/99
[2019-11-20 04:12] LABS: Basophils % (Auto) 0.6 % (0.0-1.8); Eosinophils # (Auto) 0.1 K/mm3 (0.0-0.4); Eosinophils % (Auto) 1.4 % (0.0-4.3); Hematocrit 31.6 % (30.3-42.9); Hemoglobin 11.2 gm/dl (10.1-14.3); Lymphocytes # (Auto) 1.7 K/mm3 (1.2-5.4); Lymphocytes % (Auto) 43.1 % (13.4-35.0); Mean Corpuscular HGB Conc 35 % (30-34); Mean Corpuscular Volume 93 fl (79-97); Monocytes # (Auto) 0.4 K/mm3 (0.0-0.8); Monocytes % (Auto) 10.8 % (0.0-7.3); Platelet Count 239 K/mm3 (140-440); Red Cell Distribution Width 14.2 % (13.2-15.2)
--- NOTE | 2019-11-20 04:21 | XRay Report ---
CHEST 1 VIEW INDICATION: Chest Pain. COMPARISON: None. FINDINGS: Support devices: None. Heart: Normal. Lungs/Pleura: No acute pulmonary or pleural findings. IMPRESSION: 1. No acute findings. Signer Name: Kyle Pierce MD Signed: 11/20/2019 4:16 AM Workstation Name: [id number]
[2019-11-20 04:25] LABS: BUN/Creatinine Ratio 21; Blood Urea Nitrogen 19 mg/dL (7-17); Calcium 9.4 mg/dL (8.4-10.2); Hemolysis Index 5
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
== END 2019-11-20 08:30 | disposition home or self-care (01) ==
LOC: ED 03:15
DX: R07.89 Other chest pain (principal)
CPT/HCPCS: 36415; 71045; 80048; 84484; 85025; 93005

== ENCOUNTER 2020-08-25 19:26 | Emergency (ER) | payer MEDICARE | END 2020-08-25 22:00 | disposition left against medical advice (07) | LOC: ED 19:26 | DX: Z00.8 Encounter for other general examination (principal); Z53.21 Procedure and treatment not carried out due to patient leaving prior to being seen by health care provider ==

== ENCOUNTER 2021-07-18 01:34 | Emergency (ER) | payer MEDICARE ==
[2021-07-18] MEDS ORDERED: LORazepam 2 MG/ML VIAL IM PRN (01:51)
[2021-07-18] MEDS ORDERED: HALOPERIDOL LACTATE 5 MG/1 ML INJ IM PRN (01:51)
--- NOTE | 2021-07-18 01:52 | Emergency Department Report ---
ED General Adult HPI - General Chief complaint: Psych Stated complaint: MH EVAL Time Seen by Provider: 07/18/21 01:50 Source: patient, EMS (Verbal report received from emergency medical services. EMS documentation not available at time of chart dictation ), RN notes reviewed, old records reviewed Mode of arrival: Stretcher Limitations: Other (Psychosis and disorganized behavior) - History of Present Illness Initial comments: The patient was evaluated in the emergency department for symptoms described in the history of present illness. He/she was evaluated in the context of the global COVID-19 pandemic, which necessitated consideration that the patient might be at risk for infection with the virus that causes COVID-19. Institutional protocols and algorithms that pertain to the evaluation of patients at risk for COVID-19 are in a state of rapid change based on information released by regulatory bodies including the CDC and federal and state organizations. These policies and algorithms were followed during the patient's care in the emergency department. Please note that these policies, procedures and recommendations changed on a rapid basis. This is a 56-year-old female with a history of psychiatric disease, who was brought to the hospital by emergency medical services. As per verbal report from EMS, patient living at home, and a home without furniture. EMS reports bizarre behavior and disorganized behavior, with patient walking in the middle of the street. They report unremarkable vital signs in the field. The patient herself is awake, and alert to name, but confused and disorganized. She denies physical pain, homicidality and suicidality. She states that the president is Deangelo Delgado. She denies hallucinations. She has a known history of psychiatric disease. -: unknown - Related Data Home Medications Medication Instructions Recorded Confirmed Last Taken Benztropine [Cogentin] 1 mg PO BID 09/20/18 09/20/18 Unknown Depakote ER 1,500 mg PO HS 09/20/18 09/20/18 Unknown Paliperidone Palmitate [Invega 156 mg IM QMONTH 09/20/18 09/20/18 Unknown Sustenna] Triamterene/Hydrochlorothiazid 37.5 mg PO DAILY 09/20/18 09/20/18 Unknown [Triamterene-Hctz 37.5-25 mg Cp] diphenhydrAMINE [Benadryl CAP] 25 mg PO QHS PRN 09/20/18 09/20/18 Unknown Previous Rx's Medication Instructions Recorded Last Taken Type ARIPiprazole [Abilify TAB] 5 mg PO QDAY #30 tablet 09/27/18 Unknown Rx haloperidoL [Haldol] 10 mg PO BID #60 tablet 09/27/18 Unknown Rx Allergies Allergy/AdvReac Type Severity Reaction Status Date / Time No Known Allergies Allergy Verified 10/05/17 16:25 ED Review of Systems ROS: Stated complaint: MH EVAL Other details as noted in HPI Constitutional: denies: fever Eyes: denies: eye discharge ENT: denies: epistaxis Respiratory: denies: cough Cardiovascular: denies: chest pain Gastrointestinal: denies: abdominal pain Genitourinary: denies: dysuria Musculoskeletal: denies: back pain Neurological: confusion Psychiatric: denies: auditory hallucinations, visual hallucinations, homicidal thoughts, suicidal thoughts ED Past Medical Hx - Past Medical History Previous Medical History?: Yes Hx Congestive Heart Failure: No Hx Diabetes: No Hx Renal Disease: No Hx Arthritis: No Hx Seizures: No Hx Psychiatric Treatment: Yes (schizophrenia) Hx Asthma: No Hx COPD: No Hx Dementia: No Additional medical history: schizophrenia - Surgical History Past Surgical History?: Yes Hx Cholecystectomy: No Hx Appendectomy: No Additional Surgical History: SOPHIE - Social History Smoking Status: Never Smoker Substance Use Type: None - Medications Home Medications: Home Medications Medication Instructions Recorded Confirmed Last Taken Type Benztropine [Cogentin] 1 mg PO BID 09/20/18 09/20/18 Unknown History Depakote ER 1,500 mg PO HS 09/20/18 09/20/18 Unknown History Paliperidone Palmitate [Invega 156 mg IM QMONTH 09/20/18 09/20/18 Unknown History Sustenna] Triamterene/Hydrochlorothiazid 37.5 mg PO DAILY 09/20/18 09/20/18 Unknown History [Triamterene-Hctz 37.5-25 mg Cp] diphenhydrAMINE [Benadryl CAP] 25 mg PO QHS PRN 09/20/18 09/20/18 Unknown History ARIPiprazole [Abilify TAB] 5 mg PO QDAY #30 tablet 09/27/18 Unknown Rx haloperidoL [Haldol] 10 mg PO BID #60 tablet 09/27/18 Unknown Rx ED Physical Exam - General Limitations: Other (Psychosis and disorganized behavior) General appearance: in no apparent distress, obese - Head Head exam: Present: atraumatic, normocephalic - Eye Eye exam: Present: normal appearance, EOMI. Absent: nystagmus - ENT ENT exam: Present: normal exam, normal orophraynx, mucous membranes moist, normal external ear exam - Neck Neck exam: Present: normal inspection, full ROM. Absent: tenderness, meningismus - Respiratory Respiratory exam: Present: normal lung sounds bilaterally. Absent: respiratory distress, wheezes, rales, rhonchi, stridor, decreased breath sounds - Cardiovascular Cardiovascular Exam: Present: regular rate, normal rhythm, normal heart sounds. Absent: bradycardia, tachycardia, irregular rhythm, systolic murmur, diastolic murmur, rubs, gallop - GI/Abdominal GI/Abdominal exam: Present: soft. Absent: distended, tenderness, guarding, rebound, rigid, pulsatile mass - Extremities Exam Extremities exam: Present: normal inspection, full ROM, other (2+ pulses noted in the bilateral upper and lower extremities. There is no long bony tenderness. The muscular compartments are soft. The pelvis is stable). Absent: calf tenderness - Back Exam Back exam: Present: normal inspection. Absent: tenderness, CVA tenderness (R), CVA tenderness (L), paraspinal tenderness, vertebral tenderness - Neurological Exam Neurological exam: Present: alert (Patient is awake and alert to name and location. She states the president is Deangelo Delgado.), other (There is no facial droop. The tongue is midline. EOMI. 5/5 strength in 4 extremities). Absent: motor sensory deficit - Psychiatric Psychiatric exam: Present: flat affect. Absent: homicidal ideation, suicidal ideation - Skin Skin exam: Present: warm, dry, intact, normal color. Absent: rash ED Course Vital Signs 07/18/21 01:45 Temperature 98 F Pulse Rate 88 Respiratory 18 Rate Blood Pressure 138/78 O2 Sat by Pulse 99 Oximetry ED Medical Decision Making - Lab Data Result diagrams: 07/18/21 02:00 07/18/21 02:00 Vital Signs 07/18/21 01:45 Temperature 98 F Pulse Rate 88 Respiratory 18 Rate Blood Pressure 138/78 O2 Sat by Pulse 99 Oximetry Lab Results 07/18/21 07/18/21 07/18/21 Range/Units 02:00 02:00 02:00 WBC 3.1 L (4.5-11.0) K/mm3 RBC 3.69 (3.65-5.03) M/mm3 Hgb 11.1 (10.1-14.3) gm/dl Hct 34.0 (30.3-42.9) % MCV 92 (79-97) fl MCH 30 (28-32) pg MCHC 33 (30-34) % RDW 13.3 (13.2-15.2) % Plt Count 197 (140-440) K/mm3 Lymph % (Auto) 39.9 H (13.4-35.0) % [place] % (Auto) 10.9 H (0.0-7.3) % Eos % (Auto) 4.6 H (0.0-4.3) % Baso % (Auto) 0.6 (0.0-1.8) % Lymph # (Auto) 1.2 (1.2-5.4) K/mm3 [place] # (Auto) 0.3 (0.0-0.8) K/mm3 Eos # (Auto) 0.1 (0.0-0.4) K/mm3 Baso # (Auto) 0.0 (0.0-0.1) K/mm3 Seg Neutrophils % 44.0 (40.0-70.0) % Seg Neutrophils # 1.4 L (1.8-7.7) K/mm3 Sodium 140 (137-145) mmol/L Potassium 4.0 (3.6-5.0) mmol/L Chloride 103.6 (98-107) mmol/L Carbon Dioxide 27 (22-30) mmol/L Anion Gap 13 mmol/L BUN 16 (7-17) mg/dL Creatinine 0.9 (0.6-1.2) mg/dL Estimated GFR > 60 ml/min BUN/Creatinine Ratio 18 % Glucose 100 (65-100) mg/dL Calcium 9.0 (8.4-10.2) mg/dL Salicylates < 0.3 L (2.8-20.0) mg/dL Acetaminophen (10.0-30.0) ug/mL Plasma/Serum Alcohol (0-0.07) % 07/18/21 07/18/21 Range/Units 02:00 02:00 WBC (4.5-11.0) K/mm3 RBC (3.65-5.03) M/mm3 Hgb (10.1-14.3) gm/dl Hct (30.3-42.9) % MCV (79-97) fl MCH (28-32) pg MCHC (30-34) % RDW (13.2-15.2) % Plt Count (140-440) K/mm3 Lymph % (Auto) (13.4-35.0) % Lake % (Auto) (0.0-7.3) % Eos % (Auto) (0.0-4.3) % Baso % (Auto) (0.0-1.8) % Lymph # (Auto) (1.2-5.4) K/mm3 [place] # (Auto) (0.0-0.8) K/mm3 Eos # (Auto) (0.0-0.4) K/mm3 Baso # (Auto) (0.0-0.1) K/mm3 Seg Neutrophils % (40.0-70.0) % Seg Neutrophils # (1.8-7.7) K/mm3 Sodium (137-145) mmol/L Potassium (3.6-5.0) mmol/L Chloride (98-107) mmol/L Carbon Dioxide (22-30) mmol/L Anion Gap mmol/L BUN (7-17) mg/dL Creatinine (0.6-1.2) mg/dL Estimated GFR ml/min BUN/Creatinine Ratio % Glucose (65-100) mg/dL Calcium (8.4-10.2) mg/dL Salicylates (2.8-20.0) mg/dL Acetaminophen 5.0 L (10.0-30.0) ug/mL Plasma/Serum Alcohol < 0.01 (0-0.07) % - Medical Decision Making Differential diagnosis, including not limited to: Psychosis, disorganized behavior, schizophrenia, medical clearance for psychiatric placement Assessment and plan: 56-year-old female with acute decompensated psychosis and disorganized behavior. Her physical exam is benign and unremarkable. Her laboratory studies are essentially noncontributory. Leukopenia appears to be chronic. Urinalysis, drug screen and COVID swab pending. Emergency room will follow along as the patient provides these. At this point in time, the patient does not appear to have an immediate medical contraindication to psychiatric admission, evaluation, consultation and placement. Critical care attestation.: If time is entered above; I have spent that time in minutes in the direct care of this critically ill patient, excluding procedure time. ED Disposition Clinical Impression: Schizophrenia, Medical clearance for psychiatric admission Disposition: [address] [place] [address] Is pt being admited?: No Does the pt Need Aspirin: No Condition: Stable
[2021-07-18 02:18] LABS: Basophils % (Auto) 0.6 % (0.0-1.8); Eosinophils # (Auto) 0.1 K/mm3 (0.0-0.4); Eosinophils % (Auto) 4.6 % (0.0-4.3); Hemoglobin 11.1 gm/dl (10.1-14.3); Lymphocytes # (Auto) 1.2 K/mm3 (1.2-5.4); Lymphocytes % (Auto) 39.9 % (13.4-35.0); Mean Corpuscular HGB Conc 33 % (30-34); Mean Corpuscular Volume 92 fl (79-97); Monocytes # (Auto) 0.3 K/mm3 (0.0-0.8); Monocytes % (Auto) 10.9 % (0.0-7.3); Platelet Count 197 K/mm3 (140-440); Red Blood Count 3.69 M/mm3 (3.65-5.03); Red Cell Distribution Width 13.3 % (13.2-15.2)
[2021-07-18 02:34] LABS: BUN/Creatinine Ratio 18; Blood Urea Nitrogen 16 mg/dL (7-17); Hemolysis Index 4
[2021-07-18 07:43] LABS: Amphetamine Screen,Urine Negative; Benzodiazepines Screen,Urine Negative; Cannabinoid Screen,Urine Negative; Cocaine Screen,Urine Negative; Methadone Screen,Urine Negative; Opiate Screen,Urine Negative
[2021-07-18 07:52] LABS: Bilirubin,Urine NEG (Negative); Blood,Urine NEG (Negative); Color,Urine Straw (Yellow); Protein,Urine <15 mg/dL mg/dL (Negative); RBC,Urine < 1.0 /HPF (0.0-6.0); Urobilinogen,Urine < 2.0 mg/dL (<2.0)
[2021-07-18 08:19] LABS: WBC,Urine < 1.0 /HPF (0.0-6.0)
--- NOTE | 2021-07-18 12:21 | Consultation ---
History of Present Illness - Reason for Consult Consult date: 07/18/21 Reason for consult: Mental health evaluation - History of Present Psychiatric Illness HPI: This is a 56-year-old female with a history of psychiatric disease, who was brought to the hospital by emergency medical services. As per verbal report from EMS, patient living at home, and a home without furniture. EMS reports bizarre behavior and disorganized behavior, with patient walking in the middle of the street. They report unremarkable vital signs in the field. The patient herself is awake, and alert to name, but confused and disorganized. She denies physical pain, homicidality and suicidality. She states that the president is Deangelo Delgado. The patient is a 56 year old female with history of paranoid schizophrenia. The patient was seen today. She is calm but confused. The patient states " the doctor brought me here, some lacerations, and check my blood. The patient states she is not sure why she is here. Unable to assess si/hi/avhs due to patients condition. PAST PSYCHIATRIC HISTORY: PAST MEDICAL HISTORY: None reported or document Family Psychiatric History: None reported or documented SOCIAL HISTORY REVIEW OF SYSTEMS MENTAL STATUS EXAMINATION Diagnoses: Treatment Plan 1013 Zyprexa 5mg po BID Trazodone 50mg po QHS Medical: per primary Sitter: defer to primary Disposition: recommend acute psychiatric inpatient treatment Will follow. Thanks Case staffed with Dr. Smith Medications and Allergies Medications and Allergies Allergies Allergy/AdvReac Type Severity Reaction Status Date / Time No Known Allergies Allergy Verified 10/05/17 16:25 Home Medications Medication Instructions Recorded Confirmed Last Taken Type Benztropine [Cogentin] 1 mg PO BID 09/20/18 09/20/18 Unknown History Depakote ER 1,500 mg PO HS 09/20/18 09/20/18 Unknown History Paliperidone Palmitate [Invega 156 mg IM QMONTH 09/20/18 09/20/18 Unknown History Sustenna] Triamterene/Hydrochlorothiazid 37.5 mg PO DAILY 09/20/18 09/20/18 Unknown History [Triamterene-Hctz 37.5-25 mg Cp] diphenhydrAMINE [Benadryl CAP] 25 mg PO QHS PRN 09/20/18 09/20/18 Unknown History ARIPiprazole [Abilify TAB] 5 mg PO QDAY #30 tablet 09/27/18 Unknown Rx haloperidoL [Haldol] 10 mg PO BID #60 tablet 09/27/18 Unknown Rx Active Meds: Active Medications Haloperidol Lactate (Haloperidol Lactate 5 Mg/1 Ml Inj) 5 mg IM Q6HR PRN PRN Reason: Agitation Lorazepam (Lorazepam 2 Mg/Ml Vial) 2 mg IM Q4HR PRN PRN Reason: Agitation Mental Status Exam - Vital signs Last Vital Signs Temp 98 F 07/18/21 01:45 Pulse 60 07/18/21 12:02 Resp 18 07/18/21 12:02 BP 143/81 07/18/21 12:02 Pulse Ox 97 07/18/21 12:02 Results Result Diagrams: 07/18/21 02:00 07/18/21 02:00 Abnormal lab results 07/18/21 07/18/21 07/18/21 Range/Units 02:00 02:00 02:00 WBC 3.1 L (4.5-11.0) K/mm3 Lymph % (Auto) 39.9 H (13.4-35.0) % [place] % (Auto) 10.9 H (0.0-7.3) % Eos % (Auto) 4.6 H (0.0-4.3) % Seg Neutrophils # 1.4 L (1.8-7.7) K/mm3 Urine pH (5.0-7.0) Salicylates < 0.3 L (2.8-20.0) mg/dL Acetaminophen 5.0 L (10.0-30.0) ug/mL 07/18/21 Range/Units 06:41 WBC (4.5-11.0) K/mm3 Lymph % (Auto) (13.4-35.0) % [place] % (Auto) (0.0-7.3) % Eos % (Auto) (0.0-4.3) % Seg Neutrophils # (1.8-7.7) K/mm3 Urine pH 8.0 H (5.0-7.0) Salicylates (2.8-20.0) mg/dL Acetaminophen (10.0-30.0) ug/mL All other labs normal.
--- NOTE | 2021-07-18 12:55 | Emergency Department Report ---
Blank Doc - Documentation Documentation: S: No events reported overnight O: Vital Signs - 8 hr 07/18/21 07/18/21 07:34 12:02 Pulse Rate 60 Respiratory 18 Rate Blood Pressure 143/81 [Left] O2 Sat by Pulse 99 97 Oximetry A: Schizophrenia P: 1013 awaiting inpatient psych
[2021-07-18] MEDS ORDERED: traZODone 50 MG TAB PO SCH (22:00)
[2021-07-19 11:00] VITALS: BP 150/100
--- NOTE | 2021-07-19 12:34 | Emergency Department Report ---
Blank Doc - Documentation Documentation: S: No events reported overnight O: Vital Signs - 8 hr 07/19/21 10:59 Temperature 98.6 F Pulse Rate 65 Respiratory 16 Rate Blood Pressure 150/100 [Left] O2 Sat by Pulse 97 Oximetry E: Schizophrenia P: 1013/awaiting inpatient psych
== END 2021-07-19 14:00 ==
LOC: ED 01:34
DX: F20.9 Schizophrenia, unspecified (principal); Z20.822 Contact with and (suspected) exposure to COVID-19; Z13.30 Encounter for screening examination for mental health and behavioral disorders, unspecified
CPT/HCPCS: 36415; 80048; 80307; 81001; 85025; 96372; 99285; J2060; U0003; 80320; G0480; J1630